=== PATIENT | male | born 1990 | race Caucasian/White ===

== ENCOUNTER 2016-08-14 14:14 | Emergency (ER) | payer OTHER ==
[2016-08-14 15:43] VITALS: BP 122/67
--- NOTE | 2016-08-14 16:10 | UC ---
Lower Extremity/Ankle HPI - HPI Summary HPI Summary: PATIENT PRESENTS WITH RIGHT THIGH PAIN AFTER STRAINING IT DURING BASEBALL. HE STATES HE FELT IMMEDIATE PAIN TO HIS QUADRICEP MUSCLE AFTER PUSHING OFF FROM THE MAT. THERE IS OBVIOUS SWELLING, BUT NO ECCHYMOSIS OR COLOR CHANGES. HE IS AMBULATING, BUT WITH SLIGHT PAIN. HE IS A MAILMAN AND WALKS FOR WORK, AND DOESN 'T KNOW IF HE CAN GO BACK QUITE YET. HE ALSO IS C/O OF RIGHT SIDED RIB PAIN FROM AN INJURY IN [employer] AND HE FEELS HE MAY HAVE REINJURED THE AREA. HE NOTES TO SOME PHLEGM AND RECENT URI BUT DENIES COUGH OR OTHER SYMPTOMS. PATIENT IS OTHERWISE HEALTHY AND TAKES NO MEDICATIONS. DENIES SICK CONTACTS. - History of Current Complaint Chief Complaint: UCLowerExtremity Stated Complaint: UPPER LEG SWOLLEN (SPORTS) Time Seen by Provider: 08/14/16 15:41 Hx Obtained From: Patient Onset/Duration: Sudden Onset Severity Initially: Moderate Severity Currently: Moderate Pain Intensity: 5 Pain Scale Used: 0-10 Numeric Aggravating Factor(s): Standing, Ambulation Alleviating Factor(s): Rest Able to Bear Weight: Yes - Risk Factors Gout Risk Factors: Negative DVT Risk Factors: Negative Septic Arthritis Risk Factor: Negative - Allergies/Home Medications Allergies/Adverse Reactions: Allergies Allergy/AdvReac Type Severity Reaction Status Date / Time Cefaclor [From Ceclor] Allergy Mild Fever Verified 08/14/16 15:37 PMH/Surg Hx/FS Hx/Imm Hx Previously Healthy: Yes Endocrine History Of: Denies: Diabetes Cardiovascular History Of: Denies: Cardiac Disorders Respiratory History Of: Denies: Asthma - Surgical History Surgical History: Yes Surgery Procedure, Year, and Place: vasectomy - Family History Known Family History: Positive: Unknown - Social History Occupation: Employed Full-time Lives: With Family Alcohol Use: Occasionally Alcohol Amount: once a week Substance Use Type: Marijuana Substance Use Comment - Amount & Last Used: occasional Smoking Status (MU): Never Smoked Tobacco Review of Systems Constitutional: Negative Skin: Negative ENT: Negative Respiratory: Negative Cardiovascular: Negative Motor: Weakness Neurovascular: Negative Musculoskeletal: Myalgia - RIGHT QUADRICEP PAIN Neurological: Negative Psychological: Negative All Other Systems Reviewed And Are Negative: Yes Physical Exam Triage Information Reviewed: Yes Appearance: Well-Appearing, No Pain Distress, Well-Nourished Vital Signs: Initial Vital Signs Temp 99.7 F 08/14/16 15:29 Pulse 90 08/14/16 15:29 Resp 16 08/14/16 15:29 BP 122/67 08/14/16 15:29 Pulse Ox 99 08/14/16 15:29 Vital Signs Reviewed: Yes Eye Exam: Normal Eyes: Positive: Conjunctiva Clear ENT Exam: Normal ENT: Positive: Normal ENT inspection, Pharynx normal Dental Exam: Normal Neck exam: Normal Neck: Positive: Supple, Nontender, No Lymphadenopathy Respiratory: Positive: Chest non-tender, Lungs clear, Normal breath sounds Cardiovascular Exam: Normal Cardiovascular: Positive: RRR Musculoskeletal: Positive: Strength Intact, ROM Intact, Other: - PAIN OVER RIGHT SIDED PALPATION Neurological Exam: Normal Neurological: Positive: Alert Psychological: Positive: Normal Response To Family Skin Exam: Normal Lower Extremity Course/Dx - Course Course Of Treatment: PATIENT ARRIVES AFTER STRAINING HIS RIGHT QUADRICEP 2 DAYS AGO. SWELLING IS NOTED, BUT NO ECCHYMOSIS FOR CONCERN OVER A HEMATOMA. PATIENT HAS BEEN ICING. HE ALSO NOTES TO SOME RIGHT SIDED RIB PAIN FROM 3 MONTHS AGO. HE NEVER HAD IMAGING AT THAT TIME. IMAGING WAS OFFERED IN , BUT COURSE OF TREATMENT WOULD NOT CHANGE IF IT WAS FX RIB. HE AGREES TO NOT DO THE XRAY IT IS NOT BOTHERING HIM MUCH, AND HE POSSIBLY STRAINED THE MUSCLE DURING YOGA. QUADRICEP IS SWOLLEN AND HE IS REFERRED TO DR. DE ANDA FOR FURTHER EVALUATION. 2 DAYS OF REST AND NOTE GIVEN FOR WORK. PATIENT OK WITH DISCHARGE AND AGREES TO FOLLOW UP IN 1-2 DAYS. - Differential Dx/Diagnosis Differential Diagnosis/HQI/PQRI: Compartment Syndrome, Contusion, Sprain, Strain , Tendonitis Provider Diagnoses: MUSCLE SPRAIN Discharge - Discharge Plan Condition: Stable Disposition: HOME Patient Education Materials: Musculoskeletal Pain (ED) Forms: *Work Release Referrals: Anthony De Anda MD [Medical Doctor] - No Primary Care Phys,NOPCP [Primary Care Provider] - Additional Instructions: Ice x 2 days Moist heat to the area after Ibuprofen 600mg three times daily Follow up with Dr. De Anda for possible need for more imaging or evaluation
== END 2016-08-14 16:14 | disposition home or self-care (01) ==
LOC: UCCORT 14:14
DX: S76.111A Strain of right quadriceps muscle, fascia and tendon, initial encounter (principal); X58.XXXA Exposure to other specified factors, initial encounter; Y93.64 Activity, baseball; Y92.320 Baseball field as the place of occurrence of the external cause; R07.81 Pleurodynia; Z88.1 Allergy status to other antibiotic agents
CPT/HCPCS: 36415; 87389; 99202; G0463; G0475

== ENCOUNTER 2017-06-05 18:16 | Emergency (ER) | payer OTHER ==
[2017-06-05 19:12] VITALS: BP 114/65
--- NOTE | 2017-06-05 20:04 | RAD ---
INDICATION: Right rib injury. COMPARISON: There are no prior studies available for comparison. TECHNIQUE: 3 views of the right ribs and dual-energy PA views of the chest were obtained. FINDINGS: There appears to be a nondisplaced fracture of the right lateral eighth rib. The heart is within normal limits in size. The lungs are clear. There is no evidence for pneumothorax or pleural effusion. IMPRESSION: NONDISPLACED FRACTURE OF THE RIGHT LATERAL EIGHTH RIB.
[2017-06-05] MEDS ORDERED: Ibuprofen TAB* 600 MG PO ONE (20:17)
--- NOTE | 2017-06-05 20:18 | UC ---
Cardiac HPI - HPI Summary HPI Summary: 27 male presents to with complaints of right side rib pain that has been ongoing for the past week, however worsened over the past few days. Patient states he was playing volleyball was on his knee fell forward and landed on right ribs. Took his breath away when occurred. Worsens with deep breaths and coughing. Has not taken any medication. No trouble breathing or chest pain. No other complaints. No PMHX. - History of Current Complaint Chief Complaint: UCTrauma Stated Complaint: RT SIDE PAIN (RIB) Time Seen by Provider: 06/05/17 19:32 Hx Obtained From: Patient Onset/Duration: Sudden Onset, Lasting Days, Still Present, Worse Since Initial Severity: Mild Current Severity: Moderate Pain Intensity: 6 Chest Pain Location: Discrete at: - right ribs around 7-9 anteriorly area Aggravating Factor(s): Deep Breaths, Other - coughing laughing Alleviating Factor(s): Rest, Nothing - Allergy/Home Medications Allergies/Adverse Reactions: Allergies Allergy/AdvReac Type Severity Reaction Status Date / Time cefaclor [From [facility]] Allergy Fever Verified 06/05/17 19:04 PMH/Surg Hx/FS Hx/Imm Hx - Additional Past Medical History Additional PMH: Denies PMHx - Surgical History Surgical History: Yes Surgery Procedure, Year, and Place: TONSILLECTOMY - Family History Known Family History: Positive: Unknown - Social History Alcohol Use: Occasionally Alcohol Amount: once a week Substance Use Type: None Substance Use Comment - Amount & Last Used: occasional Smoking Status (MU): Never Smoked Tobacco Review of Systems Constitutional: Negative Respiratory: Negative Cardiovascular: Other - chest wall pain, rib pain Motor: Negative Musculoskeletal: Arthralgia, Myalgia - right rib All Other Systems Reviewed And Are Negative: Yes Physical Exam Triage Information Reviewed: Yes Appearance: Well-Appearing, No Pain Distress, Well-Nourished Vital Signs: Initial Vital Signs Temp 98.8 F 06/05/17 19:05 Pulse 72 06/05/17 19:05 Resp 16 06/05/17 19:05 BP 114/65 06/05/17 19:05 Pulse Ox 99 06/05/17 19:05 Vital Signs Reviewed: Yes Eyes: Positive: Conjunctiva Clear Neck exam: Normal Respiratory: Positive: Chest non-tender, Lungs clear, Normal breath sounds, No respiratory distress, No accessory muscle use Cardiovascular: Positive: RRR, No Murmur, Pulses Normal, Brisk Capillary Refill Musculoskeletal: Positive: Strength Intact, ROM Intact, No Edema, Other: - TTP of right anterior 7-9 rib area, faint ecchymosis noted in same area no crepitus or step off Neurological: Positive: Alert Skin Exam: Normal - faint ecchymosis as described above Diagnostics - Radiology right ribs/chest Xray Interpretation: Positive (See Comments) - nondisplaced right lateral eigth rib fracture. Radiology Interpretation Completed By: Radiologist - Assessment/Plan Course Of Treatment: xray obtained and positive for rib fracture. given ibuprofen. continue at home RICE and spirometer. aware of worsening signs/ symptoms. follow up pcp/ortho. refrain from weight lifting. - Clinical Impression Provider Diagnoses: rib fracture right side Discharge - Discharge Plan Condition: Good Disposition: HOME Patient Education Materials: Rib Fracture (ED) Forms: *Work Release Referrals: Anthony De Anda MD [Medical Doctor] - [facility] [place] [facility]FERR[facility] [Outside] Additional Instructions: Take ibuprofen as needed for pain/discomfort. Apply ice. Use pillow for support at night. Use spirometer as instructed. Follow up with PCP/ortho for recheck. Any new or worsening symptoms please seek medical attention (trouble breathing etc) as discussed.
== END 2017-06-05 20:33 | disposition home or self-care (01) ==
LOC: UCCORT 18:16
DX: S22.31XA Fracture of one rib, right side, initial encounter for closed fracture (principal); W18.30XA Fall on same level, unspecified, initial encounter; Y93.68 Activity, volleyball (beach) (court); Y92.318 Other athletic court as the place of occurrence of the external cause; Z88.1 Allergy status to other antibiotic agents
CPT/HCPCS: 99211; A9270-GY; G0463